=== PATIENT | female | born 1995 | race Two or more races ===

== ENCOUNTER 2017-01-14 20:32 | Emergency (ER) | payer OTHER ==
[2017-01-14 20:57] VITALS: RESP 16
--- NOTE | 2017-01-14 21:20 | EDPHY ---
H & P Time Seen by Provider: 01/14/17 21:11 HPI/ROS: CHIEF COMPLAINT: right knee pain HISTORY OF PRESENT ILLNESS: 21-year-old female in the ER via private vehicle complaining of acute right medial knee pain after she was playing soccer, plantar foot and felt immediate pain to her right medial knee. She is unable to bear weight secondary to pain. No fall from height. Occurred shortly prior to arrival. Pain is reproducible with palpation range of motion. No direct trauma to her knee. No proximal or distal pain or injury PHYSICAL EXAM (Prior to examination, patient consented to physical exam, hands were washed and my usual and customary physical exam procedures followed) 1) GENERAL: Well-developed, well-nourished, alert and oriented. Appears to be in no acute distress. 2) HEAD: Normocephalic 3) HEENT: Pupils equal, round, reactive to light bilaterally. 4) LUNGS: Breathing comfortably. 5) MUSCULOSKELETAL: Exam of the right knee shows no visible abnormality, no effusion, normal coloration no effusion. Tender to palpation right medial knee. Keeping knee nearly fully extended. Reproducible medial knee pain with range of motion. I am unable to assess instability secondary to pain with range of motion . Compartments are soft. 6) SKIN: Intact no discoloration. 7) VASCULAR: DP,PT pulses and cap refill present and brisk distally DIFFERENTIAL DIAGNOSIS: in no particular order including but not limited to fracture, sprain, compartment syndrome, septic arthritis, DVT Procedure: Crutches indications for crutch use discussed with patient. Patient fitted for crutches by ER staff. Observed ambulating with crutches. I think the patient has the capacity to safely use crutches. Usual and customary crutch walking precautions provided Procedure: Splint A knee immobilizer splint was applied by ER residential service technician. After application of the splint I returned and re-examined the patient. The splint was adequately immobilizing the joint and distal to the splint the patient's circulation and sensation were intact. Patient shows no signs of compartment syndrome. Was given orthopedic precautions. MEDICAL DECISION MAKING Serial evaluations performed on patient. I discussed the limitations of x-ray in diagnosis of knee pain and injury. At this time I do not think that emergent MRI is currently indicated. However, I have recommended follow-up with Orthopedic surgery and provided this referral information. Informed the patient that outpatient MRI may be indicated. Doubt septic arthritis. Doubt compartment syndrome. Doubt DVT. Smoking Status: Never smoked Constitutional: Initial Vital Signs Temperature (C) 37.4 C 01/14/17 20:54 Heart Rate 94 01/14/17 20:54 Respiratory Rate 16 01/14/17 20:54 Blood Pressure 111/69 01/14/17 20:54 O2 Sat (%) 97 01/14/17 20:54 O2 Delivery Mode Room Air Allergies/Adverse Reactions: No Known Allergies Allergy (Unverified 10/21/10 10:20) Home Medications: Medication Instructions Recorded NK [No Known Home Meds] 01/14/17 MDM/Departure - MDM Imaging Results: Imaging Impressions Knee X-Ray 01/14/17 20:58 Impression: Normal right knee radiographs. Images reviewed myself - Depart Disposition: Home, Routine, Self-Care Clinical Impression: Right medial knee pain Condition: Good Instructions: Knee Pain (ED) Additional Instructions: Return to the ER immediately if you experience discoloration, have worsening pain, numbness, tingling, or any other symptoms that concern you. If you received x-rays in the emergency department today, be advised, that ligamentous , tendon, muscular, and other non-bony injury cannot be fully ruled out. Try to keep your affected extremity elevated above the level of your chest, and keep cold packs on the affected area, for the next 48 hours. Referrals: Adriano Richey MD [Medical Doctor] - 5-7 days, call for appt.
[2017-01-14 22:35] VITALS: BP 112/68; PULSE 70; TEMP 98.6; O2SAT 95
== END 2017-01-14 22:35 | disposition home or self-care (01) ==
DX: M25.561 Pain in right knee (principal)
CPT/HCPCS: L1830